=== PATIENT | female | born 1970 | race Caucasian/White ===

== ENCOUNTER 2019-06-29 13:58 | Inpatient (IN) | payer OTHER ==
[~2019-06-29] VITALS: Ht 162.6 cm; Wt 99.8 kg
[2019-06-29] MEDS ORDERED: CRESTOR20 MG PO (14:31)
[2019-06-29] MEDS ORDERED: GLUMETZA500 MG PO (14:31)
[2019-06-29] MEDS ORDERED: PROTONIX20 MG PO (14:32)
[2019-06-29] MEDS ORDERED: TOPROL XL50 M1 PO (14:32)
[2019-06-29] MEDS ORDERED: PAROXETINE CR25 MG PO (14:33)
== END 2019-07-21 17:07 | disposition home or self-care (01) | DRG 811 ==
LOC: ER 13:58 → SEC-K 06-30 11:45 → MEDJ 06-30 11:45 → SURH 06-30 14:56 → MEDJ 07-01 14:39
PROVIDERS: ADMIT Internal Medicine
PROC: 30233N1 Transfusion of Nonautologous Red Blood Cells into Peripheral Vein, Percutaneous Approach (ICD-10-PCS; principal; 2019-06-30)
PROC: BF35ZZZ Magnetic Resonance Imaging (MRI) of Liver (ICD-10-PCS; 2019-06-30)
PROC: BF3 Imaging, Hepatobiliary System and Pancreas, Magnetic Resonance Imaging (MRI) (ICD-10-PCS; 2019-06-30)
PROC: 3E0F7GC Introduction of Other Therapeutic Substance into Respiratory Tract, Via Natural or Artificial Opening (ICD-10-PCS; 2019-07-04)
PROC: 0F9030Z Drainage of Liver with Drainage Device, Percutaneous Approach (ICD-10-PCS; 2019-07-04)
PROC: BW40ZZZ Ultrasonography of Abdomen (ICD-10-PCS; 2019-07-07)
PROC: 0F9030Z Drainage of Liver with Drainage Device, Percutaneous Approach (ICD-10-PCS; 2019-07-11)
PROC: BW40ZZZ Ultrasonography of Abdomen (ICD-10-PCS; 2019-07-14)
PROC: BF35ZZZ Magnetic Resonance Imaging (MRI) of Liver (ICD-10-PCS; 2019-07-15)
DX: D50.0 Iron deficiency anemia secondary to blood loss (chronic) (principal); K75.0 Abscess of liver; K57.30 Diverticulosis of large intestine without perforation or abscess without bleeding; E78.49 Other hyperlipidemia; E11.9 Type 2 diabetes mellitus without complications; I10 Essential (primary) hypertension; E86.0 Dehydration; R16.2 Hepatomegaly with splenomegaly, not elsewhere classified; B95.4 Other streptococcus as the cause of diseases classified elsewhere
CPT/HCPCS: 74181; 74182